=== PATIENT | female | born 1990 | race Caucasian/White ===

== ENCOUNTER 2022-12-19 14:04 | Emergency (ER) | payer OTHER, SELFPAY ==
--- NOTE | 2022-12-19 14:08 | ED.DIZZY ---
HPI - Dizziness General Chief Complaint: Dizziness Stated Complaint: light headed dizziness Time Seen by Provider: 12/19/22 14:09 Source: patient and RN notes reviewed History of Present Illness HPI Narrative: Patient is a 40-year-old female who presents to urgent care with complaints of lightheadedness and dizziness. Patient states it has been 20 persistent for the last 2 weeks and times that she has ?felt like she is going to pass out?. Patient states she has continued to do daily living activity, take care for , and dry. Patient states that she does not currently have a primary care doctor but spoke to her airplane dispatcher who stated they would refer her to ENT for possible inner ear. Patient not taken anything [id number] for her symptoms. Denies any headaches, neuro deficits, nausea or vomiting. Patient is currently not breast feeding. No other acute complaints. No acute distress noted. Patient aware of the plan of care. Some parts of this dictation were generated by voice recognition software and may contain typographical and/or grammatical inaccuracies. Related Data Home Medications Medication Instructions Recorded Confirmed bupropion HCl 150 mg 24 hr tablet, 150 mg PO DAILY 12/19/22 12/19/22 extended release Allergies Allergy/AdvReac Type Severity Reaction Status Date / Time No Known Allergies Allergy Verified 12/19/22 14:25 Review of Systems Review of Systems: CONSTITUTIONAL: Denies fever, chills, or sweats. EYES: Denies visual changes, redness, or discharge. ENT: Denies rhinorrhea, congestion, sore throat, or otalgia. CARDIOVASCULAR: Denies chest pain, palpitations, or edema. RESPIRATORY: Denies cough or dyspnea. GASTROINTESTINAL: Denies abdominal pain, nausea, vomiting, or diarrhea. GENITOURINARY: Denies dysuria or hematuria. SKIN: Denies rash or itching. MUSCULOSKELETAL: Denies back pain, joint pain, or myalgia. NEUROLOGIC: Reports of dizziness and lightheadedness All other systems reviewed are negative, except as documented in HPI. PMFSH Comments At the time of my signature, I reviewed and agree with the nursing past medical, surgical, social, and family history. There is no relevant family history pertinent to the patient complaint. Exam Narrative: GENERAL: This is a well-nourished, well-developed patient, in no apparent distress. HEAD: normocephalic, atraumatic. EYES: PERRL. Sclera clear/white. Vision is grossly intact. EARS: External ears normal, auditory canals clear and without drainage, TMs normal without perforation. Hearing grossly intact. NOSE: External nose normal with no obvious nasal discharge, nares without redness, no rhinorrhea. THROAT: Mucous membranes moist, posterior pharynx clear. NECK: Neck supple CARDIOVASCULAR: Regular rate and rhythm without murmurs, gallops, or rubs. RESPIRATORY: Clear to auscultation. Breath sounds equal bilaterally. No wheezes, rales, or rhonchi. SKIN: warm, intact with no suspicious lesions or rash, good texture and turgor. NEURO: awake, alert, and oriented to person, place and time. There were no obvious focal neurologic abnormalities. No neuro deficits EXTREMITIES: No clubbing, cyanosis, or edema. Course Course Level of Care: Express Care Visit Vital Signs Vital signs: Vital Signs Temperature 97.9 F 12/19/22 14:14 Pulse Rate 97 12/19/22 14:14 Respiratory Rate 20 12/19/22 14:14 Blood Pressure 105/74 12/19/22 14:14 Pulse Oximetry 100 12/19/22 14:14 Oxygen Delivery Room Air 12/19/22 14:14 Temperature 97.9 F 12/19/22 14:14 Pulse Rate 97 12/19/22 14:14 Respiratory Rate 20 12/19/22 14:14 Blood Pressure 105/74 12/19/22 14:14 Pulse Oximetry 100 12/19/22 14:14 Oxygen Delivery Room Air 12/19/22 14:14 Reviewed MDM - Dizziness MDM Narrative Medical decision making narrative: Explained to the patient that our resources are very limited at the urgent care and would advise follow-up with your PCP
[2022-12-19 14:14] VITALS: BP 105/74; PULSE 97; RESP 20; TEMP 36.6; O2SAT 100
== END 2022-12-19 14:40 | disposition home or self-care (01) ==
PROVIDERS: Emergency Provider Nurse Practitioner Family; PCP Family Medicine
DX: R42 Dizziness and giddiness (principal); F41.9 Anxiety disorder, unspecified; F32.A Depression, unspecified
CPT/HCPCS: 99211; G0463

== ENCOUNTER 2024-02-12 13:52 | Outpatient (CLI) | payer OTHER, SELFPAY | END 2024-02-12 13:53 | disposition home or self-care (01) | PROVIDERS: PCP Nurse Practitioner Adult Health; Visit Provider Nurse Practitioner Adult Health | DX: M79.671 Pain in right foot (principal) | CPT/HCPCS: 73630 ==